=== PATIENT | male | born 1985 | race Caucasian/White ===

== ENCOUNTER 2021-07-18 15:57 | Emergency (ER) | payer OTHER, MEDICAID, SELFPAY ==
[2021-07-18 16:11] VITALS: BP 149/82; PULSE 99; RESP 16; TEMP 36.3; O2SAT 95; BMI 25.5
== END 2021-07-18 19:13 | disposition left against medical advice (07) ==
PROVIDERS: Emergency Provider Emergency Medicine
DX: L08.9 Local infection of the skin and subcutaneous tissue, unspecified (principal)
CPT/HCPCS: 99281